=== PATIENT | male | born 1990 | race Caucasian/White ===

== ENCOUNTER → 2021-04-29 13:56 | Outpatient (BNVA) | payer SELFPAY | PROVIDERS: Visit Provider Nurse Practitioner Family | DX: R05 Cough (principal); R50.9 Fever, unspecified; Z20.822 Contact with and (suspected) exposure to COVID-19; Z91.89 Other specified personal risk factors, not elsewhere classified | CPT/HCPCS: 85025 ==

== ENCOUNTER 2021-05-04 09:01 | Emergency (ER) | payer OTHER, SELFPAY ==
[2021-05-04 09:15] VITALS: BP 134/82; PULSE 82; RESP 16; TEMP 37.2; O2SAT 93; BMI 30.3
--- NOTE | 2021-05-04 09:25 | W.ED.COVID ---
HPI - COVID General: Chief Complaint: General Medical Stated Complaint: CP, ALL OVER PAIN, SOB, H/A, FEVER (HOME 101) Time Seen by Provider: 05/04/21 09:17 Triage information: Has fever, cough or shortness of breath. No known COVID + exposure last 14 days History of Present Illness: HPI Narrative: Loss of taste smell, body aches, headache, fever, decreased appetite, MD complaint: has COVID symptoms Prior covid testing: no COVID 19 common symptoms: positive fever(s), chills, cough, non-productive cough, body aches, headache(s), loss of sense of smell and/or taste, nausea and chest tightness; negative throat pain or nasal congestion COVID 19 other sytmptoms: negative chest pain Onset (ago): day(s) (8) Severity: mild Treatment prior to arrival: acetaminophen COVID Results: SARS-CoV-2 Antigen (Rapid) Positive (Negative) H 05/04/21 09:30 05/04/21 Review of Systems Const: Reports: fever(s), chills and body aches Eyes: Denies: change in vision or blurry vision ENMT: Denies: throat pain or nasal congestion Card: Denies: chest pain or dyspnea on exertion Resp: Reports: non-productive cough GI: Reports: nausea : Denies: difficulty urinating Musc: Denies: extremity pain Skin/Breast: Denies: rash Neuro: Reports: headache(s) Psych: Denies: anxiety or depression Jimmy/Lymph: Denies: easy bruising PFSH ED PFSH: Social History Smoking and tobacco status: never smoked Second hand smoke exposure: No Smoking risk assessment/counseling performed?: No Alcohol intake: never Desire information about alcohol rehabilitation?: No Counseling given: No Desire information about substance/drug rehabilitation?: No Counseling given: No Adopted: No Caregiver/support person: No Lives independently: Yes Household members: spouse Housing: House Marital status: Number of children: 1 Highest education level completed: 9th Grade service: No Current occupational status: employed History of recent travel: No Physical Exam Const: COMMON NORMALS: no acute distress GENERAL APPEARANCE: cooperative Resp: COMMON NORMALS: normal respiratory effort and No retractions GI: INSPECTION: Yes normal to inspection Psych: COMMON NORMALS: mental status grossly normal Course Vital Signs: Vital signs: Vital Signs Temperature 98.9 F 05/04/21 09:15 Pulse Rate 69 05/04/21 10:26 Respiratory Rate 16 05/04/21 10:26 Blood Pressure 109/70 05/04/21 10:26 Pulse Oximetry 93 05/04/21 10:26 MDM - COVID MDM Narrative: Medical decision making narrative: Covid positive on 8 they is symptoms. Not a candidate for monoclonal antibody. Lab Data: Labs: Lab Results 05/04/21 Range/Units 09:30 SARS-CoV-2 Ag (Rap id) Positive H (Negative) COVID Results: SARS-CoV-2 Antigen (Rapid) Positive (Negative) H 05/04/21 09:30 05/04/21 Discharge Plan Discharge Patient Disposition: Home Clinical Impression: COVID-19 Condition: Stable Prescriptions: New Decadron 6 mg tablet 6 mg PO DAILY Qty: 7 RF: 0 No Action doxycycline hyclate 100 mg capsule 100 mg PO BID 10 Days Qty: 20 RF: 0 dexamethasone 6 mg tablet 6 mg PO DAILY 5 Days Qty: 5 RF: 0 Discharge Orders: Discharge ED (Routine); Ordered 05/04/21 Ordered By: Hermilo Mitchell Discharge Diet: Usual diet Discharge Activity: Increase activity as tolerated Patient Instructions: Viral Syndrome (ED) Activity Restrictions/Additional Instructions: Self quarantine for 10 days with the 10-day starting at the start of your symptoms. Take Tylenol or ibuprofen for muscle aches. Observe for worsening symptoms such as severe shortness of breath. Follow-up your primary care provider take medication as directed continue drink fluids. Coding Level of Care Code ED Supervisor M[employer] for Andrés Fwdevan Exam Expanded Problem Focused
[2021-05-04 09:29] VITALS: BP 130/84; PULSE 83; RESP 16; O2SAT 92
[2021-05-04 10:13] LABS: SARS Covid-2 Antigen Positive (Negative)
[2021-05-04 10:26] VITALS: BP 109/70; PULSE 69; RESP 16; O2SAT 93
== END 2021-05-04 10:26 | disposition home or self-care (01) ==
PROVIDERS: Emergency Provider Nurse Practitioner Family
DX: U07.1 COVID-19 (principal)
CPT/HCPCS: 87426; 99282

== ENCOUNTER → 2021-08-06 09:47 | Outpatient (BNVA) | payer SELFPAY | PROVIDERS: Visit Provider Nurse Practitioner Family | DX: R30.0 Dysuria (principal); J01.90 Acute sinusitis, unspecified; J01.00 Acute maxillary sinusitis, unspecified; L29.9 Pruritus, unspecified | CPT/HCPCS: 80053; 81000; 85025; 87491; 87591 ==

== ENCOUNTER → 2021-08-19 12:12 | Outpatient (BNVA) | payer SELFPAY | PROVIDERS: Visit Provider Nurse Practitioner Family | DX: R07.9 Chest pain, unspecified (principal) | CPT/HCPCS: 71046 ==